=== PATIENT | male | born 2000 | race Caucasian/White ===

== ENCOUNTER 2019-03-25 17:56 | Emergency (ER) | payer OTHER ==
[2019-03-25 18:06] VITALS: RESP 18
[2019-03-25] MEDS ORDERED: LIDOCAINE 1% INJ 10MG/ML (20 ML MDV) SQ ONE (19:07)
--- NOTE | 2019-03-25 19:07 | ED ---
General Adult HPI - General Chief complaint: Skin/Abscess/Foreign Body Stated complaint: Nail in hand-[facility] Time Seen by Provider: 03/25/19 18:28 Source: patient Mode of arrival: ambulatory Limitations: no limitations - History of Present Illness Initial comments: Patient is a 18-year-old male presents emergency Department with a foreign body in his left hand. Patient reports using a nail gun when the nail went through the soft tissue of his left hand. Patient denies numbness or tingling. Patient reports the pain is exacerbated with any finger movements and is alleviated rest. Patient reports is able to fully move all of his digits. Patient denies taking medication to alleviate the pain. Patient denies erythema but does report mild edema at the site of entry. Patient is unaware of his tetanus status. - Related Data Previous Rx's Medication Instructions Recorded Cephalexin [Keflex] 500 mg PO Q6HR #40 cap 03/25/19 Allergies Allergy/AdvReac Type Severity Reaction Status Date / Time No Known Allergies Allergy Verified 03/25/19 18:06 Review of Systems ROS Statement: Those systems with pertinent positive or pertinent negative responses have been documented in the HPI. ROS Other: All systems not noted in ROS Statement are negative. Past Medical History Additional Past Medical History / Comment(s): Patellar dislocation; Clavicle dislocation History of Any Multi-Drug Resistant Organisms: None Reported Past Surgical History: No Surgical Hx Reported Past Psychological History: No Psychological Hx Reported Smoking Status: Never smoker Past Alcohol Use History: None Reported Past Drug Use History: None Reported General Exam - General Exam Comments Initial Comments: General: Well-developed well-nourished distress HEENT: Normocephalic/atraumatic, PERLL, pharynx erythema, swallowing well, EAC no erythema, no exudates, TM clear, no cervical lymph nodes Neck: Supple, nontender, trachea midline Chest/Lungs: Normal respirations, no signs of respiratory distress clear to auscultation bilaterally no wheezes, rales, rhonchi Cardiac: Regular rate and rhythm, normal S1-S2, no murmurs rubs or gallops Abdomen/GI: Soft nontender, bowel sounds equal or quadrant x4, no guarding, no rebound no CVA tenderness : Deferred Musculoskeletal: +2 radial and ulnar pulses. No skin discoloration. Mild edema at the site of trauma. Metal nail with an entry point at the proximal palmar surface, exit 2 cm distally and another entry point 0.5 cm to that. No anatomical snuffbox tenderness. X-ray is negative for acute fractures or di slocations. Skin: Warmth, no rashes or lesions, no cyanosis or diaphoresis Neurologic: AAO x 3, CN 2-12 intact, Psychiatric: Mood and affect normal, judgment normal Limitations: no limitations General appearance: alert, in no apparent distress Head exam: Present: atraumatic, normocephalic, normal inspection Eye exam: Present: normal appearance, PERRL, EOMI Pupils: Present: normal accommodation ENT exam: Present: normal exam, mucous membranes moist, TM's normal bilaterally Neck exam: Present: normal inspection, full ROM Respiratory exam: Present: normal lung sounds bilaterally. Absent: respiratory distress, wheezes, rales Cardiovascular Exam: Present: regular rate, normal rhythm, normal heart sounds GI/Abdominal exam: Present: soft Extremities exam: Present: normal capillary refill Left Shoulder Exam: Present: normal inspection, full ROM Upper Arm exam: Present: normal inspection, full ROM Elbow exam: Present: normal inspection, full ROM Forearm Wrist exam: Present: normal inspection, full ROM Hand Wrist exam: Present: other (Approximately 4 cm metal nail puncture wound on the palmar aspect of left hand.) Hand L/R Front: 1 - foreign body (Metal nail) Vascular: Present: normal capillary refill, radial pulse, ulnar pulse Back exam: Present: normal inspection Neurological exam: Present: alert, oriented X3 Psychiatric exam: Present: normal affect, normal mood Skin exam: Present: warm, intact, normal color Course Vital Signs 03/25/19 03/25/19 18:04 19:46 Temperature 98.0 F 97.9 F Pulse Rate 71 82 Respiratory 18 18 Rate Blood Pressure 140/84 128/65 O2 Sat by Pulse 98 100 Oximetry Medical Decision Making - Medical Decision Making Patient is a 18-year-old male presents emergency Department with a foreign body in his left hand. Foreign body was removed. The entry and exit point were not closed. Patient will be placed on a 10 day course of Keflex. Patient was also administered tetanus prophylaxis. Patient advised to follow up with orthopedics. Patient advised to return to emergency department sent is worsen. Case discussed with physician. Disposition Clinical Impression: Foreign body of hand, left Disposition: HOME SELF-CARE Condition: Stable Instructions (If sedation given, give patient instructions): Soft Tissue Foreign Body (ED) Additional Instructions: Please take prescribed medication as directed. Please follow-up with orthopedics. Please return to emergency department if symptoms worsen. Prescriptions: Cephalexin [Keflex] 500 mg PO Q6HR #40 cap Is patient prescribed a controlled substance at d/c from ED?: No Referrals: Sergey Rossi MD [Primary Care Provider] - 1-2 days Bk Bond DO [Doctor of Osteopathic Medicine] - 1-2 days Time of Disposition: 19:35
--- NOTE | 2019-03-25 19:27 | XR ---
EXAMINATION TYPE: XR hand complete LT DATE OF EXAM: 03/25/2019 COMPARISON: NONE HISTORY: Trauma. Nail in the soft tissues. TECHNIQUE: 4 views FINDINGS: There is a metal nail foreign body projected in the soft tissues anterior to the first MP j oint. I see no fracture nor dislocation. IMPRESSION: Nail foreign body.
[2019-03-25] MEDS ORDERED: DIPH,PERTUS(ACELL)TETVAC-LF 0.5 ML VIAL IM ONE (19:29)
[2019-03-25 19:47] VITALS: BP 128/65; PULSE 82; TEMP 97.9
--- NOTE | 2019-03-26 06:52 | CDI ---
Documentation Clarification OP Dear Kyle LION, PAC Please do the addendum for foreign body removal procedure. Thank you, Amina Ann Stained Glass Painter If you have any question, Please contact deli manager at [phone] mtdD
== END 2019-03-25 19:47 | disposition home or self-care (01) ==
LOC: EC 17:56 → SUPCPDRO 17:56 → EC 19:47
DX: S61.442A Puncture wound with foreign body of left hand, initial encounter (principal); Z23 Encounter for immunization; W29.4XXA Contact with nail gun, initial encounter
CPT/HCPCS: 73130; 90715; 99283; 10120; 90471; J2001